=== PATIENT | female | born 1990 | race Caucasian/White ===

== ENCOUNTER 2019-01-19 13:08 | Emergency (ER) | payer OTHER ==
--- OUTSIDE RECORDS SUMMARY | 2019-01-19 13:15 | XMS REPORT | Continuity of Care Document ---
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 Medication overuse headache Kayleen Moody MD Onset: 12/10/2015 Migraine with typical aura Kayleen Moody MD Onset: 12/10/2015 Family History Date Family Member(s) Observation Comments General Mother and aunt have ankylosing Father has fibromyalgia; spondylitis mother has had deteriorating disc disease Father Migraine Father Hyperthyroidism Mother Migraine Mother Stroke Mother Epilepsy Mother Diabetes Social History Type Date Description Comments Sex Unknown ETOH Use Occasionally consumes alcohol Tobacco Use Start: Unknown End: Patient is a former smoker Unknown Smoking Status Reviewed: 01/09/19 Patient is a former smoker Exercise Type/Frequency Exercises sporadically Allergies, Adverse Reactions, Alerts Description No Known Drug Allergies Medications Active Medications SIG Qnty Indications Ordering Provider Date Vitamin 1 by mouth every Unknown Tablets day History Medications Verapamil HCL 1 tablet by 60tabs G43.109 Kayleen Moody MD 12/10/2015 - 80mg mouth at night 01/09/2019 Tablets for 1 week then 1 tablet twice a day Hydromorphone HCL 1 mouth 2-3 Unknown - 4mg times a day as 01/09/2019 Tablets needed pain Methamazole tid Unknown - 5mg Capsules 01/09/2019 Lina-Be 1 by mouth Unknown - 0.35mg Tablets every day 01/09/2019 Vitamin D 1 by mouth Unknown - 2000Unit every day 01/09/2019 Capsules Vitamin B12 1 by mouth Unknown - 100mcg every day 01/09/2019 Tablets Vitamin B6 every day Unknown - 200mg Tablets 01/09/2019 Magox 400 1 tab po qhs Unknown - 1200mg Tablets 01/09/2019 Vital Signs Date Vital Result Comment 01/09/2019 9:50am Height 67 inches 5'7" Weight 114.00 lb Heart Rate 80 /min BP Systolic 116 mmHg BP Diastolic 78 mmHg Pain Level 7 O2 % BldC Oximetry 98 % BMI (Body Mass Index) 17.9 kg/m2 12/10/2015 11:04am Height 67 inches 5'7" Weight 108.00 lb Heart Rate 56 /min BP Systolic Sitting 114 mmHg BP Diastolic Sitting 68 mmHg Respiratory Rate 14 /min BMI (Body Mass Index) 16.9 kg/m2 Encounters Type Date Location Provider Dx Diagnosis Office Visit 12/10/2015 [facility] Kayleen Moody MD G43.109 Migraine with 11:[facility] aura, not intractable, w/o status migrainosus G44.40 Drug-induced headache, NEC, not intractable D35.2 Benign neoplasm of pituitary gland Plan of Treatment Future Appointment(s):02/19/2019 2:45 pm - Keith Agosto M.D. 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
[2019-01-19 13:33] VITALS: BP 114/77
[2019-01-19] MEDS ORDERED: Ketorolac INJ* 30 MG/ML 1 ML VIAL IM ONE (14:39)
--- NOTE | 2019-01-19 14:45 | UC ---
General HPI - HPI Summary HPI Summary: Ms. Schneider thinks she overdid it yesterday and caused a flareup of her fibromyalgia. She has pain in her bilateral hip joints. She did fall towards the end of the day but states that she didn't really get hurt from the fall. - History of Current Complaint Chief Complaint: UCGeneralIllness Stated Complaint: MUS,PAIN Time Seen by Provider: 01/19/19 14:33 Hx Obtained From: Patient Hx Last Menstrual Period: just finished Onset/Duration: Gradual Onset Timing: Constant Onset Severity: Moderate Current Severity: Moderate Pain Intensity: 10 - Allergy/Home Medications Allergies/Adverse Reactions: Allergies Allergy/AdvReac Type Severity Reaction Status Date / Time adhesive tape Allergy Rash And Verified 01/19/19 13:33 Itching bee venom protein (honey bee) Allergy Anaphylatic Verified 01/19/19 13:33 Shock kiwi Allergy Unknown Verified 01/19/19 13:33 Reaction Details hydrocodone AdvReac Hallucinati Verified 01/19/19 13:33 ons Home Medications: Home Medications Acetaminophen [Tylenol] 01/19/19 [History] Adalimumab [Humira] 01/19/19 [History] Voa950/Iron/FA/O3/Dha/Epa/Fish [ Multi-Dha Softgel] 01/19/19 [History] PMH/Surg Hx/FS Hx/Imm Hx Previously Healthy: Yes - ankylosing spondylitis and fibromyalgia - Surgical History Surgical History: Yes Surgery Procedure, Year, and Place: wisdom teeth - Social History Alcohol Use: None Substance Use Type: Marijuana Substance Use Comment - Amount & Last Used: medical Smoking Status (MU): Former Smoker Type: Cigarettes Amount Used/How Often: 1/2 PPD Have You Smoked in the Last Year: Yes Household Exposure Type: Cigarettes - Immunization History Most Recent Influenza Vaccination: unsure Most Recent Tetanus Shot: 02/10/15 Most Recent Pneumonia Vaccination: unsure Review of Systems All Other Systems Reviewed And Are Negative: Yes Motor: Positive: Negative Neurovascular: Positive: Negative Musculoskeletal: Positive: Arthralgia - Bilateral hips Neurological: Positive: Negative Physical Exam - Summary Physical Exam Summary: She is nontoxic in appearance with stable vitals Triage Information Reviewed: Yes Appearance: Well-Appearing Vital Signs: Initial Vital Signs Temp 98.7 F 01/19/19 13:28 Pulse 60 01/19/19 13:28 Resp 16 01/19/19 13:28 BP 114/77 01/19/19 13:28 Pulse Ox 99 01/19/19 13:28 Vital Signs Reviewed: Yes Neck exam: Normal Respiratory Exam: Normal Cardiovascular Exam: Normal Abdominal Exam: Normal Musculoskeletal Exam: Other - Tender range of motion of her hips. Neurological Exam: Normal Course/Dx - Course Course Of Treatment: She assures me that she didn't really get hurt when she fell. She says her PCP gives her shot that starts with a T whenever this kind of thing happens. I will give her a shot of ketorolac. She has an appointment with Dr. Serrano and a couple days. - Diagnoses Provider Diagnosis: Fibromyalgia Discharge - Sign-Out/Discharge Documenting (check all that apply): Patient Departure All imaging exams completed and their final reports reviewed: No Studies - Discharge Plan Condition: Stable Disposition: HOME Patient Education Materials: Fibromyalgia (ED) Referrals: Amandeep Torrez DO [Primary Care Provider] - - Billing Disposition and Condition Condition: STABLE Disposition: Home
== END 2019-01-19 15:03 | disposition home or self-care (01) ==
LOC: UCEAST 13:08
DX: M79.7 Fibromyalgia (principal)
CPT/HCPCS: 96372; 99211; G0463; J1885